=== PATIENT | female | born 2000 | race Caucasian/White ===

== ENCOUNTER 2020-09-07 08:36 | Day surgery (SDC) | payer OTHER, SELFPAY ==
[2020-09-07] VITALS (8 sets, daily range): BP systolic 111–118; BP diastolic 69–78; PULSE 71–83; RESP 14–16; TEMP 36.2–36.4; O2SAT 97–99; BMI 22.9
--- NOTE | 2020-09-07 09:00 | TUR_PTH ---
PATIENT: JAVON GARCIA LOC: [facility] [place] U#:[id number] AGE/SX: 20/F ROOM: RE09/07/[address]: Dr. Eros Shaffer MD : 2000 BED: DIS: 09/07/2020 SPEC #: [id number] RECD: 09/07/20 13:52 STATUS: CAROLINE FRANCINE #: [id number] EDILSON: 09/07/20 09:[address]: Eros Shaffer DEPT: SURGICAL PATHOLOGY RECD BY: Dawna Mehta ENTERED: 09/08/20 07:39 SP TYPE: TURBINATES OTHR DR: Dr. Mendez Ramírze MD Tissues: Nasal turbinate, NOS Procedures: Surgery Specimen Level III HEADER OPERATION: Tympanoplasty with tragal cartilage graft PRE-OP DIAGNOSIS: Left tympanic membrane perforation, nasal airway obstruction, inferior turbinate hypertrophy TISSUE SUBMITTED: Turbinates MICROSCOPIC DIAGNOSIS Turbinates, excision: Benign submucosal glandular tissue with minimal chronic inflammation. AM:william 09/09/20 MICROSCOPIC DESCRIPTION Slides are reviewed. GROSS DESCRIPTION Received in fixative is one container labeled with the patient's name and designated turbinates. The specimen consists of multiple minute fragments of light falcon soft tissue that in aggregate measure 0.5 x 0.1 x <0.1 cm. The specimen is totally submitted in one cassette. / AM:william 09/08/20 TC:5 CPT: 16787
[2020-09-07 09:38] LABS: Internal QC Validated? YES +Cl - CLEAR BKGD; Pregnancy, Urine Negative Negative
--- NOTE | 2020-09-07 09:53 | DCINST_ITS ---
You will use the following diet at home:: Regular Discharge Activity: - - no nose blowing Additional Activity Instructions:: remove ear dressing tomorrow and replace the cotton ball as needed. Start saline irrigation 3x/day starting tomorrow. Allergies/Adverse Reactions: Allergies No Known Allergies Allergy (Verified 09/03/20 11:30) Medications to take at Discharge NK 09/03/20 Primary Care Physician: Mendez Ramírez MD [Primary Care Provider] - Test Results: Test results from this visit will be discussed in further detail at your follow- up appointment, if applicable.
[2020-09-07] MEDS: Lactated Ringers 1,000 ML 100 ML IV (10:03)
[2020-09-07] MEDS: Ciprofloxacin 0.3% 2.5ml Bottle 1 DRP (10:30)
[2020-09-07] MEDS: Epinephrine (1 mg/ml) 1 MG/ML VIAL (10:51)
[2020-09-07] MEDS: Oxymetazoline 0.05% 1 SPRAY SPRAY.BTL 15 SPRAY (12:15)
[2020-09-07] MEDS: Neomycin/Bacitracin/Polymyxin Ointment 1 APPLIC (12:25)
--- NOTE | 2020-09-07 12:33 | OP.PCM_ITS ---
Report of Operation Date of Procedure: 09/07/20 Pre-Operative Diagnosis: left tympanic membrane perforation. nasal airway obstruction. inferior turbinate hypertrophy Post-Operative Diagnosis: same Surgery/Procedure Performed:: Left tympanoplasty. [place] tragal cartilage graft. submucous resection inferior turbinates bilaterally Type of Anesthesia:: General Anesthesiologist: Zaire Cortez Estimated Blood Loss (mL): minimal Description of Procedure: Patient was taken to the operating room on 09/07/20. She was placed in supine position on the operating table. She was given sufficient general endotracheal anesthesia. The table was turned 90 degrees in a clockwise fashion. The left ear was prepped and draped sterilely. 1% lidocaine with epinephrine was injec tony into the tragus and meatus. Next a speculum was placed in the external auditory canal and the external auditory canal skin was injected with 1% lidocaine with epinephrine. Next I made an incision at the edge of the tragal cartilage with a 15 blade. A plane was established sharply on both the medial and lateral aspects of the tragal cartilage. The tragal cartilage was then harvested sharply with scissors. I then irrigated the tragal harvest site with saline. Hemostasis was achieved with bipolar cautery. The incision was then closed with interrupted 6-0 fast-absorbing gut. I placed a quilting suture to close the space as well. Next a speculum was nunez was used. I rimmed the perforation with a [place] pick. The rim was removed with a cup forceps. I then made an incision from 12:00 to 7:00 oclock posteriorly in the external auditory canal skin with a round [place] blade. The tympanomeatal flap was elevated sharply. The annulus was kept with the meatal flap. Hemostasis was achieved with adrenaline soaked Gelfoam. I then placed Cipro impregnated Gelfoam into the middle ear space. The tragal cartilage was cut to the appropriate size and placed in an underlay fashion beneath the perforation. The tympanomeatal flap was redraped. I then made sure that the cartilage was tucked circumferentially underneath the perforation. Gelfilm was placed on top of the perforation and then the external auditory canal was filled with antibiotic ointment. A Dominick dressing was then applied. Attention was then turned to the nose. 1% lidocaine with epinephrine injected into the septum bilaterally as well as the anterior aspect of the inferior turbinates bilaterally. An incision was placed in the anterior aspect of the right inferior turbinate at the mucocutaneous junction with a 15 blade. A submucous plane was established using a [place] elevator. Submucous resection was carried out using a microdebrider. Afrin pledgets were used for hemostasis. The incision was then closed with 4-0 chromic. An incision was placed in the anterior aspect of the left inferior turbinate at the mucocutaneous junction with a 15 blade. A submucous plane was established using a [place] elevator. Submucous resection was carried out using a microdebrider. Afrin pledgets were used for hemostasis. The incision was then closed with 4-0 chromic. [place] nasal splints were applied to each side of the septum and sewn through and through with 3-0 silk. The patient then awoken and brought to the recovery room in stable condition. Blood loss minimal,replacement none,sponge needle and instrument counts correct were correct at the end of the procedure.
== END 2020-09-07 14:07 | disposition home or self-care (01) ==
LOC: SDC 08:36 → AC 09:11
PROVIDERS: Anesthesiology; PCP Family Medicine; Referring Provider Otolaryngology; Visit Provider Otolaryngology
PROC: (CPT 30140; principal; 2020-09-07 08:30)
DX: H72.02 Central perforation of tympanic membrane, left ear (principal); J34.89 Other specified disorders of nose and nasal sinuses; J34.3 Hypertrophy of nasal turbinates
CPT/HCPCS: 00120; 30140; 69631; 81025; 87426; 88304; C9803; J7120; J2405